=== PATIENT | male | born 1935 | race Caucasian/White ===

== ENCOUNTER → 2016-06-15 | Outpatient (CLI) | payer OTHER, MEDICARE | LOC: MMPC 11:11 | PROVIDERS: ATTEND Internal Medicine | DX: I25.10 Atherosclerotic heart disease of native coronary artery without angina pectoris (principal); I10 Essential (primary) hypertension; M54.12 Radiculopathy, cervical region; Z95.1 Presence of aortocoronary bypass graft; E78.5 Hyperlipidemia, unspecified; J43.9 Emphysema, unspecified; E03.9 Hypothyroidism, unspecified; I48.2 Chronic atrial fibrillation | CPT/HCPCS: 99214; G0463 ==

== ENCOUNTER → 2016-06-24 | Outpatient (CLI) | payer OTHER, MEDICARE ==
[2016-06-24 14:11] LABS: HEMOGLOBIN 11.8 g/dL (14.0-18.0); MEAN CORPUSCULAR HEMOGLOBIN 33.2 PG (27-31); MEAN CORPUSCULAR HGB CONC 32.8 g/dL (33-37); MEAN PLATELET VOLUME 9.5 FL (7.4-12.2); RDW COEFFICIENT OF VARIATION 13.9 % (11.5-14.5); RED BLOOD COUNT 3.55 10^6/uL (4.70-6.10); WHITE BLOOD COUNT 9.03 10^3/uL (4.8-10.8)
[2016-06-24 14:58] LABS: BUN/CREATININE RATIO 13.57 (6-20); CREATININE 1.4 mg/dL (0.70-1.50); PHOSPHORUS 3.5 mg/dl (2.4-4.3); POTASSIUM 4.3 meq/L (3.8-5.2)
== END ==
LOC: LAB 13:47
PROVIDERS: ATTEND Internal Medicine Nephrology
DX: N17.9 Acute kidney failure, unspecified (principal); E03.9 Hypothyroidism, unspecified; I10 Essential (primary) hypertension
CPT/HCPCS: 36415; 80069; 84443; 85027

== ENCOUNTER → 2016-06-29 | Outpatient (CLI) | payer OTHER, MEDICARE | LOC: MMPC 11:11 | PROVIDERS: ATTEND Internal Medicine | DX: I25.10 Atherosclerotic heart disease of native coronary artery without angina pectoris (principal); I48.2 Chronic atrial fibrillation; J43.2 Centrilobular emphysema; I10 Essential (primary) hypertension; E78.5 Hyperlipidemia, unspecified; E03.9 Hypothyroidism, unspecified; Z95.1 Presence of aortocoronary bypass graft | CPT/HCPCS: 99214; G0463 ==

== ENCOUNTER → 2016-07-03 | Outpatient (CLI) | payer OTHER, MEDICARE ==
[2016-07-03 12:53] LABS: BLOOD UREA NITROGEN 47 mg/dL (7-22); CALCIUM 10.1 mg/dL (8.7-10.7); CHLORIDE 100 meq/L (98-112); GLUCOSE 121 mg/dL (78-110); PHOSPHORUS 3.2 mg/dl (2.4-4.3); POTASSIUM 4.5 meq/L (3.8-5.2); SODIUM 140 meq/L (135-145)
== END ==
LOC: LAB 12:01
PROVIDERS: ATTEND Internal Medicine Nephrology
DX: N17.9 Acute kidney failure, unspecified (principal)
CPT/HCPCS: 36415; 80069

== ENCOUNTER → 2016-07-10 | Outpatient (CLI) | payer OTHER, MEDICARE ==
[2016-07-10 12:34] LABS: BILIRUBIN,URINE NEGATIVE (NEG); CLARITY,URINE CLEAR (CLEAR); GLUCOSE, URINE (UA) NEGATIVE (NEG); LEUKOCYTE ESTERASE ,URINE NEGATIVE (NEG); NITRATE,URINE NEGATIVE (NEG); OCCULT BLOOD,URINE MODERATE (NEG); PROTEIN,URINE NEGATIVE (NEG); UROBILINOGEN,URINE 0.2 EU/dL (0.2)
[2016-07-10 12:35] LABS: BLOOD UREA NITROGEN 53 mg/dL (7-22); BUN/CREATININE RATIO 29.44 (6-20); CHLORIDE 98 meq/L (98-112); CREATININE 1.8 mg/dL (0.70-1.50); GLUCOSE 180 mg/dL (78-110); PHOSPHORUS 3.1 mg/dl (2.4-4.3); POTASSIUM 4.1 meq/L (3.8-5.2); SODIUM 137 meq/L (135-145)
[2016-07-10 12:38] LABS: URINE SAMPLE TYPE CLEAN CATCH URINE
[2016-07-10 12:39] LABS: WBC,URINE 0-3
== END ==
LOC: LAB 11:39
PROVIDERS: ATTEND Physician Assistant Medical
DX: N18.3 Chronic kidney disease, stage 3 (moderate) (principal); R80.9 Proteinuria, unspecified
CPT/HCPCS: 36415; 80069; 81001; 87088

== ENCOUNTER → 2016-07-17 | Outpatient (CLI) | payer OTHER, MEDICARE ==
[2016-07-17 13:57] LABS: HEMATOCRIT 38.4 % (42.0-52.0); HEMOGLOBIN 13.3 g/dL (14.0-18.0); MEAN CORPUSCULAR HGB CONC 34.6 g/dL (33-37); MEAN PLATELET VOLUME 9.2 FL (7.4-12.2); RDW COEFFICIENT OF VARIATION 13.2 % (11.5-14.5); RED BLOOD COUNT 3.91 10^6/uL (4.70-6.10)
[2016-07-17 14:12] LABS: BLOOD UREA NITROGEN 38 mg/dL (7-22); BUN/CREATININE RATIO 21.11 (6-20); CALCIUM 10.4 mg/dL (8.7-10.7); CHLORIDE 96 meq/L (98-112); CREATININE 1.8 mg/dL (0.70-1.50); GLUCOSE 88 mg/dL (78-110); PHOSPHORUS 3.6 mg/dl (2.4-4.3); POTASSIUM 4.4 meq/L (3.8-5.2); SODIUM 137 meq/L (135-145)
--- NOTE | 2016-07-19 23:21 | DI ---
US RETROPERITONEAL LIMITED,07/17/2016 12:55 PM: Clinical History: Acute renal failure with the central hypertension. Previous Exam: None at this facility. Findings: Multiple grayscale and color Doppler sonographic images are obtained through the retroperitoneum demo nstrate a normal-appearing right kidney measured 12.0 cm in length without hydronephrosis nor nephrol ithiasis. The left kidney measures 9.3 cm in length also with a normal sonographic appearance. The urinary bladder is only partially distended, and therefore not well evaluated. There is a small p ost void residual measuring approximately 10.2 cc. Impression: Normal renal ultrasound.
== END ==
LOC: US 12:44
PROVIDERS: ATTEND Physician Assistant Medical
DX: N18.3 Chronic kidney disease, stage 3 (moderate) (principal); D63.1 Anemia in chronic kidney disease; N25.81 Secondary hyperparathyroidism of renal origin; N17.9 Acute kidney failure, unspecified; I10 Essential (primary) hypertension
CPT/HCPCS: 36415; 76775; 80069; 83970; 85027

== ENCOUNTER → 2016-08-29 | Outpatient (CLI) | payer OTHER, MEDICARE | LOC: MOB LAB 11:15 | PROVIDERS: ATTEND Physician Assistant | DX: R31.9 Hematuria, unspecified (principal); R82.99 Other abnormal findings in urine | CPT/HCPCS: 87077; 87088; 87186 ==

== ENCOUNTER → 2016-08-31 | Outpatient (CLI) | payer OTHER, MEDICARE | LOC: MMPC 11:11 | PROVIDERS: ATTEND Internal Medicine | DX: B95.2 Enterococcus as the cause of diseases classified elsewhere (principal); R74.8 Abnormal levels of other serum enzymes; R39.12 Poor urinary stream | CPT/HCPCS: 99214; G0463 ==

== ENCOUNTER → 2016-09-09 | Outpatient (CLI) | payer OTHER, MEDICARE | LOC: MMPC 11:11 | PROVIDERS: ATTEND Internal Medicine | DX: R10.31 Right lower quadrant pain (principal) | CPT/HCPCS: 99213; G0463 ==

== ENCOUNTER → 2016-10-01 | Outpatient (CLI) | payer OTHER, MEDICARE ==
[2016-10-01 11:00] LABS: BILIRUBIN,URINE NEGATIVE (NEG); COLOR,URINE YELLOW; GLUCOSE, URINE (UA) NEGATIVE (NEG); NITRATE,URINE NEGATIVE (NEG); OCCULT BLOOD,URINE NEGATIVE (NEG); PROTEIN,URINE NEGATIVE (NEG)
[2016-10-01 11:02] LABS: CLARITY,URINE CLEAR (CLEAR)
[2016-10-01 11:03] LABS: URINE SAMPLE TYPE CLEAN CATCH URINE
[2016-10-01 11:10] LABS: RBC,URINE 0 /hpf; SQUAMOUS EPITHELIAL CELL,UR FEW; WBC,URINE 0-1
== END ==
LOC: LAB 10:27
PROVIDERS: ATTEND Internal Medicine
DX: N39.0 Urinary tract infection, site not specified (principal); B95.2 Enterococcus as the cause of diseases classified elsewhere
CPT/HCPCS: 81001

== ENCOUNTER → 2016-10-14 | Outpatient (CLI) | payer OTHER, MEDICARE | LOC: MMPC 11:11 | PROVIDERS: ATTEND Surgery | DX: K40.90 Unilateral inguinal hernia, without obstruction or gangrene, not specified as recurrent (principal) | CPT/HCPCS: 99201; G0463 ==

== ENCOUNTER → 2016-10-28 | Outpatient (CLI) | payer OTHER, MEDICARE | LOC: MMPC 11:11 | PROVIDERS: ATTEND Internal Medicine | DX: R19.4 Change in bowel habit (principal); J43.9 Emphysema, unspecified; I10 Essential (primary) hypertension; G47.00 Insomnia, unspecified; Z95.1 Presence of aortocoronary bypass graft | CPT/HCPCS: 99214; G0463 ==

== ENCOUNTER → 2016-10-29 | Outpatient (CLI) | payer OTHER, MEDICARE | LOC: MMPC 11:11 | PROVIDERS: ATTEND Surgery | DX: K59.09 Other constipation (principal); R19.7 Diarrhea, unspecified | CPT/HCPCS: 99203 ==

== ENCOUNTER → 2016-10-30 | Outpatient (CLI) | payer OTHER, MEDICARE ==
[2016-10-30 15:17] LABS: BUN/CREATININE RATIO 27.85 (6-20); CALCIUM 9.5 mg/dL (8.7-10.7); PHOSPHORUS 3.8 mg/dl (2.4-4.3); SERUM ALBUMIN 4.4 g/dL (3.5-4.8)
== END ==
LOC: LAB 14:32
PROVIDERS: ATTEND Physician Assistant Medical
DX: N17.9 Acute kidney failure, unspecified (principal); I10 Essential (primary) hypertension
CPT/HCPCS: 36415; 80069; 82565; 84156

== ENCOUNTER → 2016-11-26 | Outpatient (CLI) | payer OTHER, MEDICARE ==
[2016-11-26 14:32] LABS: CALCIUM 9.6 mg/dL (8.7-10.7); PHOSPHORUS 3.5 mg/dl (2.4-4.3); SERUM ALBUMIN 4.4 g/dL (3.5-4.8)
== END ==
LOC: LAB 14:00
PROVIDERS: ATTEND Physician Assistant Medical
DX: N18.3 Chronic kidney disease, stage 3 (moderate) (principal)
CPT/HCPCS: 36415; 80069

== ENCOUNTER → 2016-11-30 | Outpatient (CLI) | payer OTHER, MEDICARE ==
--- NOTE | 2016-11-30 17:29 | DI ---
MRI CERVICAL SPINE SCAN, 11/30/2016 9:07 AM: Clinical History: Cervical radiculopathy. Previous Exam: 10/22/2010. Sequences: Sagittal T1and T2 weighted. Axial T2 PLUS and FE 3D DUAL. Coronal T1 scans through the upp er cervical spine. The patient is status post anterior fusions at C5-6 and C6-7. The remaining vertebral bodies are of n ormal height. The cervical disc spaces from C2-3 through C4-5 and at C7-T1 are narrowed with desiccat ion change. The C5-6 fusion may not be solid. The C6-7 fusion does appear solid. The cervical cord an d cerebellar tonsils are normal. The C2-3 disc space is normal. C3-4 and C4-5 both have mild central bulging but not herniated discs with bilateral neural foraminal stenosis. There is no canal or neural foraminal stenosis at C5-6 or C6-7. C7-T1 has a central bulging but not herniated disc without canal or neural foraminal stenosis. The T1-2, T3-4 and T4-5 disc spaces have bulging but not herniated dis cs without canal or neural foraminal stenosis. The T2-3 disc space is normal. Readin. Status post anterior fusions at C5-6 and C6-7. There is no canal or neural foraminal stenosis at either level. 2. There are bulging but not herniated discs without canal with neural foraminal stenosis at C3-4 an d C4-5. 3. There are bulging but not herniated discs without canal or neural foraminal stenosis at C7-T1, T1 -2, T3-4, and T4-5. 4. The C2-3 and T2-3 disc spaces are normal.
== END ==
LOC: MRI 09:03
PROVIDERS: ATTEND Internal Medicine
DX: M54.12 Radiculopathy, cervical region (principal); M47.812 Spondylosis without myelopathy or radiculopathy, cervical region; M47.814 Spondylosis without myelopathy or radiculopathy, thoracic region
CPT/HCPCS: 72141

== ENCOUNTER → 2016-12-09 | Outpatient (CLI) | payer OTHER, MEDICARE ==
[2016-12-09 10:23] LABS: BLOOD UREA NITROGEN 42 mg/dL (7-22); BUN/CREATININE RATIO 26.25 (6-20); CALCIUM 9.6 mg/dL (8.7-10.7); PHOSPHORUS 3.6 mg/dl (2.4-4.3); SERUM ALBUMIN 4.5 g/dL (3.5-4.8)
== END ==
LOC: LAB 09:40
PROVIDERS: ATTEND Physician Assistant Medical
DX: N18.3 Chronic kidney disease, stage 3 (moderate) (principal)
CPT/HCPCS: 36415; 80069

== ENCOUNTER 2016-12-21 09:07 | Inpatient (IN) | payer OTHER, MEDICARE ==
--- NOTE | 2016-12-21 09:51 | EKG ---
[address] [address] Measurements Intervals [place] Rate: 74 P: SC: 0 QRS: -11 QRSD: 81 T: 18 QT: 421 QTc: 448 Interpretive Statements ATRIAL FIBRILLATION ABNORMAL RHYTHM ECG No previous ECG available for comparison Electronically Signed On 12-21-16 13:52:19 MDT by Ambrocio Vela [email or web address]
[2016-12-21] MEDS ORDERED: Sodium Chloride 0.9% 1,000 ML PRIMARY IV ONE (10:17)
[2016-12-21] MEDS ORDERED: IPRATROPIUM/ALBUTEROL SULFATE 3 ML NEB NEB ONE (10:17)
[2016-12-21] MEDS ORDERED: NORMAL SALINE 10 ML SYRINGE FLUSH IVP PRN (10:17)
[2016-12-21 11:47] LABS: CALCIUM 10.2 mg/dL (8.7-10.7); SERUM ALBUMIN 4.5 g/dL (3.5-4.8)
[2016-12-21 11:49] LABS: MAGNESIUM 1.7 mg/dL (1.6-2.4)
[2016-12-21 11:55] LABS: C-REACTIVE PROTEIN < 0.5 mg/dL (0.0-0.9)
[2016-12-21 12:12] LABS: HEMATOCRIT 42 % (42.0-52.0); HEMOGLOBIN 14.9 g/dL (14.0-18.0); MEAN CORPUSCULAR HEMOGLOBIN 35.2 PG (27-31); MEAN CORPUSCULAR HGB CONC 35.5 g/dL (33-37); MEAN CORPUSCULAR VOLUME 99.3 FL (80-90); RED BLOOD COUNT 4.23 10^6/uL (4.70-6.10)
[2016-12-21 12:13] LABS: BAND NEUTROPHILS % 0 % (0-10); BASOPHILS % (MANUAL) 0 % (0-1); EOSINOPHILS % (MANUAL) 1 % (0-8); LYMPHOCYTES % (MANUAL) 23 % (10-50); MEAN PLATELET VOLUME 10.2 FL (7.4-12.2); MONOCYTES % (MANUAL) 4 % (0-12); NEUTROPHILS % (MANUAL) 72 % (50-80); PLATELET MORPHOLOGY COMMENT NORMAL MORPHOLOGY (NORM); RBC MORPHOLOGY COMMENT NORMAL MORPHOLOGY (NORM); WBC MORPHOLOGY COMMENT NORMAL MORPHOLOGY (NORM)
--- NOTE | 2016-12-21 13:03 | PDOC ---
History and Physical - History of Present Illness History of Present Illness: Very nice 81-year-old gentleman past medical history significant for chronic A. fib hypertension and COPD comes in because he has been short short of breath for the last day or 2. He is usually on 2 L of oxygen at night he has also stopped smoking 5 years ago. He also has a history of coronary bypass in 2009 and some stents placed in May 2016 and patient is currently on Plavix not on anticoagulation. Apparently he is on sotalol and this will be stopped here at the end of this month. 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 Past Medical History Medical History: COPD, coronary artery disease Surgical History: Catheter with stents in May 2016,, CABG 2009 Family History: Reviewed an Not Pertinent Tobacco Use: Former Smoker Substance Use Type: None Medication / Allergies Home Medications: Home Medications Medication Instructions Recorded Confirmed Type Lo-Dose Aspirin Ec 81 mg ORAL QD 60 Days 10/17/10 12/21/16 Clinic Vit D3 1,000 PO 90 Days 10/17/10 12/07/12 Clinic Vitamin B Complex [B Complex] 1 each PO QD #270 10/17/10 12/21/16 Clinic Albuterol Sulfate 0.63 mg IH QID #120 each 03/31/13 12/21/16 Clinic Guaifenesin [Mucinex] 1 tab PO BID #60 tab 10/18/13 12/21/16 Clinic Fluocinonide 30 gm TOPICAL BID #1 tube 01/02/15 12/21/16 Clinic Albuterol/Ipratropium Inhaler 1 puff INH Q4-6H PRN #1 inhaler 02/01/15 12/21/16 Clinic [Combivent Respimat Inhaler] Arformoterol Tartrate [Brovana] 15 mcg INH Q12H #60 vial 06/20/15 12/21/16 Clinic Budesonide Neb Soln [Pulmicort Neb 0.5 mg NEB BID #60 vial 06/20/15 12/21/16 Clinic Soln] Albuterol/Ipratrop Neb Soln 1 vial NEB QD #30 vial 07/26/15 12/21/16 Clinic [Duoneb Neb Soln] Albuterol Sulfate [Proair Hfa] 2 puff INH Q4-6H PRN #3 inhaler 09/30/15 Clinic Tizanidine HCl 0.5 - 1 tab PO Q6-8H PRN #90 tab 01/20/16 12/21/16 [facility] Oxycodone HCl/Acetaminophen 1 tab PO QID PRN #120 tab 10/28/16 12/21/16 Clinic [Oxycodone-Acetaminophen 5-325] Sotalol HCl [Sotalol] 1 tab ORAL QD #90 tab 11/05/16 12/21/16 [facility] Clopidogrel Bisulfate [Clopidogrel] 1 tab PO DAILY #90 tab 11/19/16 12/21/16 Clinic Furosemide [Lasix] 1 tab PO QD #90 tab 11/19/16 12/21/16 Clinic Gabapentin 1 tab PO TID #270 tab 11/19/16 12/21/16 [facility] Allergies/Adverse Reactions: Allergies Allergy/AdvReac Type Severity Reaction Status Date / Time bupropion HCl Allergy Intermediate HIVES Verified 12/21/16 09:21 [From Wellbutrin] Penicillins Allergy Intermediate HIVES Verified 12/21/16 09:21 Review of Systems - Review of Systems All Systems: Reviewed & No Additional Complaints Except as Stated - Respiratory Respiratory: REPORTS: Dyspnea with Exertion - Cardiovascular Cardiovascular: DENIES: Chest Pain - Genitourinary Genitourinary: DENIES: Negative System Review, Pain, Burning, Hematuria, Incontinence, Urgency, Hesitant Stream, Decreased Stream, Nocutria, Discharge, Sexual Dyfunction, Other, See HPI - Neurological Neurologic: DENIES: Negative System Review, Headache, Numbness/Paresthesia, Tremors, Weakness, Seizures, Head Trauma, LOC, Dizziness, Confusion, Memory Loss , Difficulty Walking, Incoordination, Other, See HPI Exam - Vitals Vital Signs: Vital Signs Temperature 97.6 F Temperature Source Temporal Artery Scan Pulse Rate [Pulse Oximeter 80 Radial] Pulse Rate 74 Respiratory Rate 24 Blood Pressure [Left Arm] 104/69 Pulse Ox 89 Oxygen Delivery Method Room Air Height 5 ft 8 in Weight 57.153 kg - General General Appearance: POSITIVE: No Acute Distress, Cooperative - Head Head Exam: POSITIVE: Normal Inspection, Normocephalic, Atraumatic - Respiratory Respiratory Exam: POSITIVE: Clear to Auscultation - Bilaterally, Decreased Breath Sounds - Cardiovascular Cardiovascular Exam: POSITIVE: Irregular Rhythm, No JVD - GI/Abdominal GI/Abdominal Exam: POSITIVE: Non Tender, Non Distended, Soft - Extremities Extremities Exam: POSITIVE: No Clubbing Present, No Edema Present - Neurological Neurological Exam: POSITIVE: Alert, Oriented x 3, CN II-XII Intact Results - Labs CBC and BMP: 12/21/16 11:30 12/21/16 11:30 Labs - Last 24 Hours: Laboratory Results 12/21/16 Range/Units 11:30 WBC 8.09 (4.8-10.8) 10^3/uL RBC 4.23 L (4.70-6.10) 10^6/uL Hgb 14.9 (14.0-18.0) g/dL Hct 42 (42.0-52.0) % MCV 99.3 H (80-90) FL MCH 35.2 H (27-31) PG MCHC 35.5 (33-37) g/dL RDW Std Deviation 50.3 H (39-50) fL RDW Coeff of Juan M 14.1 (11.5-14.5) % Plt Count 254 (140-350) 10*3/uL MPV 10.2 (7.4-12.2) FL Neutrophils % (Manual) 72 (50-80) % Band Neutrophils % 0 (0-10) % Lymphocytes % (Manual) 23 (10-50) % Monocytes % (Manual) 4 (0-12) % Eosinophils % (Manual) 1 (0-8) % Basophils % (Manual) 0 (0-1) % Metamyelocytes % Not Reportable Myelocytes % Not Reportable Promyelocytes % Not Reportable Blast Cells Not Reportable WBC Morphology Comment Normal morphology (NORM) Plt Morphology Comment Normal morphology (NORM) RBC Morph Comment Normal morphology (NORM) D-Dimer 2.04 H (0.00-0.59) mg/L Sodium 140 (135-145) meq/L Potassium 4.0 (3.8-5.2) meq/L Chloride 98 (98-112) meq/L Carbon Dioxide 28 (23-33) meq/L Anion Gap 14 (5-20) BUN 33 H (7-22) mg/dL Creatinine 1.5 (0.70-1.50) mg/dL Estimated GFR (>60 ml/min/1.73m(2)) BUN/Creatinine Ratio 22.00 H (6-20) Glucose 88 (78-110) mg/dL Calculated Osmolality 295.0 H (267-292) mOsm/kg Calcium 10.2 (8.7-10.7) mg/dL Magnesium 1.7 (1.6-2.4) mg/dL Total Bilirubin 1.6 H (0.3-1.2) mg/dL AST 42 (21-57) IU/L ALT 23 (21-72) IU/L Alkaline Phosphatase 62 (38-126) IU/L C-Reactive Protein < 0.5 (0.0-0.9) mg/dL Total Protein 8.0 (6.1-8.0) g/dL Albumin 4.5 (3.5-4.8) g/dL Globulin 3.4 (2.50-4.10) g/dL Albumin/Globulin Ratio 1.30 (1.3-2.0) mg/g Assessment and Plan - Patient Problems (1) COPD exacerbation Current Visit: Yes Status: Acute Comment: Check CT scan rule out PE elevated d-dimer start antibiotics steroids ABG continue home meds (2) D-dimer, elevated Current Visit: Yes Status: Acute (3) Atrial fibrillation Current Visit: Yes Status: Acute - Assessment / Plan Additional Assessment/Plan Details: Most likely COPD exacerbation but considering his heart history we will rule him out as well get a plain CT scan of his chest may sure does not have pneumonia or PE considering his elevated d-dimer patient is not on anticoagulation I will consider starting Eliquis
--- NOTE | 2016-12-21 13:33 | PDOC ---
Dyspnea HPI - General Chief Complaint: Respiratory Complaint Stated Complaint: SHORTNESS OF BREATH INCREASED YESTERDAY Date Seen by Provider: 12/21/16 Time Seen by Provider: 09:45 Source: POSITIVE: Patient, Spouse Exam Limitations: POSITIVE: No limitations Treatment Prior to Arrival: REPORTS: None Nurse's Notes Reviewed & Considered: Yes - History of Present Illness Initial Comments: The patient is a 81-year-old male. Patient has a history of COPD, hypertension and atrial fibrillation. His chief complaint is increased dyspnea for approximately the past day. Patient states he uses oxygen at night, 2 L/m, on a when necessary basis. He quit smoking 4 years ago. Patient had a coronary artery bypass in 2009 and had coronary artery stents placed in May 2016. Patient is on clopidogrel; he is not on any anticoagulants. He denies any chest pain. Somewhat increased cough. No fevers. Cough is minimally productive. He is brought to the emergency room by his . Body Location Affected: REPORTS: Chest (Dyspnea, increased) Timing: REPORTS: Gradual, Getting Worse Duration: >24 hours (Approximately 24 hours) Severity: Moderate Quality: REPORTS: Other (Patient denies any pain anywhere) Initiating Event: DENIES: Upper Respiratory Illness, Out of Medications, Sports , Exercise, Aspiration, Choking, Allergy, Exposure - Smoke, Exposure - Mold, Exposure - Other Allergen Context: REPORTS: Activity Exacerbated By: REPORTS: Exertion, Coughing Associated Symptoms: REPORTS: Productive Cough (Productive of mucoid sputum). DENIES: Fever, Chills, Sweating, Chest Pain, Chest Discomfort, Left Chest, Right Chest, Central Chest, Chest Heaviness, Chest Tightness, Painful Breathing , Radiation to Back, Radiation to Jaw, Radiation to Arm, Bloody Cough, Heart Racing, Leg Pain, Calf Pain, Ankle Swelling, Leg Swelling, Dizziness, Light- Headedness, Anxiety, Tingling - Hands, Tingling - Face, Muscle Spasms - Hands, Muscle Spasms - Feet Similar Symptoms Previously: Yes Recently seen/treated/hospitalized: No Any Prior Injuries Related to Current Complaint?: No - Patient Home Medications Home Medications: Home Medications Lo-Dose Aspirin Ec 81 mg ORAL QD 60 Days 10/17/10 Vit D3 1,000 PO 90 Days 10/17/10 Vitamin B Complex [B Complex] 1 each PO QD #270 10/17/10 Albuterol Sulfate 0.63 mg IH QID #120 each 03/31/13 Guaifenesin [Mucinex] 1 tab PO BID #60 tab 10/18/13 Fluocinonide 30 gm TOPICAL BID #1 tube 01/02/15 Albuterol/Ipratropium Inhaler [Combivent Respimat Inhaler] 1 puff INH Q4-6H PRN #1 inhaler 02/01/15 Arformoterol Tartrate [Brovana] 15 mcg INH Q12H #60 vial 06/20/15 Budesonide Neb Soln [Pulmicort Neb Soln] 0.5 mg NEB BID #60 vial 06/20/15 Albuterol/Ipratrop Neb Soln [Duoneb Neb Soln] 1 vial NEB QD #30 vial 07/26/15 Albuterol Sulfate [Proair Hfa] 2 puff INH Q4-6H PRN #3 inhaler 09/30/15 Tizanidine HCl 0.5 - 1 tab PO Q6-8H PRN #90 tab 01/20/16 Oxycodone HCl/Acetaminophen [Oxycodone-Acetaminophen 5-325] 1 tab PO QID PRN # 120 tab 10/28/16 Sotalol HCl [Sotalol] 1 tab ORAL QD #90 tab 11/05/16 Clopidogrel Bisulfate [Clopidogrel] 1 tab PO DAILY #90 tab 11/19/16 Furosemide [Lasix] 1 tab PO QD #90 tab 11/19/16 Gabapentin 1 tab PO TID #270 tab 11/19/16 - Patient Allergies Allergies/Adverse Reactions: Allergies Allergy/AdvReac Type Severity Reaction Status Date / Time bupropion HCl Allergy Intermediate HIVES Verified 12/21/16 09:21 [From Wellbutrin] Penicillins Allergy Intermediate HIVES Verified 12/21/16 09:21 Past Medical History - heen HEENT History: Hard of Hearing, Dentures/Partials, Other (please comment) Additional HEENT History: WEARS GLASSES Cardiovascular History: Hypertension, CAD, Arrhythmia Additional Cardiovasular History: ABDOMINAL AORTIC ANEURYSM PRESENT/ INTERMITTENT A-FIB/ QUADRUPLE BYPASS 2009, CARDIAC STENT x2 IN MAY 2016 Respiratory History: COPD, Shortness of Breath, Home Oxygen Use, Home CPAP Use Additional Respiratory History: IS SUPPOSED TO USE CPAP AT NIGHT BUT CHOOSES NOT TO Gastrointestinal History: GERD, Other (please comment) Additional Gastrointestinal History: DYSPHAGIA, POSSIBLE RIGHT INGUINAL HERNIA Genitourinary History: Other (please comment) Additional Genitourinary History: DIFFICULTY EMPTYING BLADDER/ KIDNEY LEVELS ELEVATED, 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) Endocrine History: Hypothyroidism Musculoskeletal History: Arthritis Prosthesis or Implant: Yes (CARDIAC STENTS x2, POSSIBLE NECK HARDWARE) Additional Musculoskeletal History: 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 Neurological History: Denies History Blood Disorders: Denies History Psychiatric History: Depression History of Sexually Transmitted Diseases: No Male Reproductive History: Denies History Cancer History: Denies History In Past Year Been Physically Harmed or Verbally Threatened: No (PER PATIENT AND ) History of MDRO: No History of Other Communicable Diseases: No Tobacco Use: Former Smoker Alcohol Use: None How much alcohol do you normally drink a day?: NONE IN 10 YEARS Substance Use Type: None Previous Surgical History: Yes Type / Date of Surgery: CABG X4 VESSELS/COLONOSCOPY/ NECK FUSION/ TONSILLECTOMY/ CARDIAC STENT x2/ABDOMINAL AORTIC ANEURYSM REPAIR Anesthesia Reactions: Yes Malignant Hyperthermia: No Significant Family History: Cancer Past Medical History Reviewed: Reviewed - No Changes ROS - Limitations ROS Limitations: No Limitations Constitution: REPORTS: Denies Symptoms Cardiovascular: REPORTS: Denies Cardiac Symptoms Respiratory: REPORTS: Cough Productive, Shortness Of Breath Neurological: REPORTS: Denies Neuro Symptoms Gastrointestinal: REPORTS: Denies GI Symptoms Endocrine: REPORTS: Denies Symptoms Musculoskeletal: REPORTS: Denies MS Symptoms Genitourinary: REPORTS: Denies Symptoms Eyes: REPORTS: Denies Symptoms ENT: REPORTS: Denies Symptoms Skin: REPORTS: Denies Skin Symptoms Lympathic: REPORTS: Denies Lympathic Symptoms Immunologic: POSITIVE: Denies Symptoms Psychiatric: POSITIVE: Denies Psych Symptoms Dyspnea Physical Exam - General Appearance General Appearance: REPORTS: Alert, Cooperative, No Acute Distress, No Evidence of Trauma - HEENT HEENT: POSITIVE: Head Inspection Nml, Eyes Inspection Nml, Ears Inspection Nml, Nose Inspection Nml, Oral/Dental Inspect. Nml, Pharynx Inspect. Nml, PERRL, EOMI - Neck Neck: REPORTS: Normal Inspection, No Carotid Bruit - Respiratory Respiratory: REPORTS: No Pleuritic Chest Pain, Speaks Full Sentences, No Pain on Inspiration, Respiratory Distress (Mild), Rhonchi. DENIES: Breath Sounds Normal (Scattered rhonchi), Fatigue, Wheezes, Rales, Prolonged Expirations, Accessory Muscle Use, Retractions, Splinting, Dull on Percussion, Decreased Air Movement, Chest Wall Tenderness, Speaks Broken Sentences, Stridor, Respiratory Failure - Cardiovascular Cardiovascular: REPORTS: Heart Sounds Normal, Equal Pulses, Strong Pulses, No Murmur, No Gallop, No Friction Rub, No JVD, Irregularly Irreg Rhythm (Atrial fibrillation with heart rate of around 80) Peripheral Pulses: Radial (R): 2+, Radial (L): 2+ - Abdomen Abdomen: Soft: (All Quadrants), Normal Bowel Sounds: (All Quadrants), Denies Tenderness: (All Quadrants), No Splenomegaly: (All Quadrants), No Hepatomegaly: (All Quadrants), No Guarding: (All Quadrants), No Rebound: (All Quadrants), No Palpable Pulse: (All Quadrants), No Palpabale Mass: (All Quadrants), No Distention: (All Quadrants), No Rigidity: (All Quadrants) - Skin Skin: REPORTS: Intact, Normal For Race, Warm, Dry, No Rash - Extremities Extremity: Non-Tender: (All Extremities), Normal ROM: (All Extremities), Normal Inspection: (All Extremities) - Neurological / Psychological Neurological: POSITIVE: Oriented X3, fourth mate Normal As Tested, Motor Normal, Sensation Normal, 5, 6 Dyspnea Progress - Results Reviewed by me Xrays/CTs/US Reviewed by me: Yes Discussed with Radiologist: Yes Radiology Findings: Scarring left lung; radiologist reports present chest x-ray is unchanged from 2012 Lab Results Reviewed: Yes (d-dimer 2.04) Lab Results:: Laboratory Results 12/21/16 Range/Units 11:30 WBC 8.09 (4.8-10.8) 10^3/uL RBC 4.23 L (4.70-6.10) 10^6/uL Hgb 14.9 (14.0-18.0) g/dL Hct 42 (42.0-52.0) % MCV 99.3 H (80-90) FL MCH 35.2 H (27-31) PG MCHC 35.5 (33-37) g/dL RDW Std Deviation 50.3 H (39-50) fL RDW Coeff of Juan M 14.1 (11.5-14.5) % Plt Count 254 (140-350) 10*3/uL MPV 10.2 (7.4-12.2) FL Neutrophils % (Manual) 72 (50-80) % Band Neutrophils % 0 (0-10) % Lymphocytes % (Manual) 23 (10-50) % Monocytes % (Manual) 4 (0-12) % Eosinophils % (Manual) 1 (0-8) % Basophils % (Manual) 0 (0-1) % Metamyelocytes % Not Reportable Myelocytes % Not Reportable Promyelocytes % Not Reportable Blast Cells Not Reportable WBC Morphology Comment Normal morphology (NORM) Plt Morphology Comment Normal morphology (NORM) RBC Morph Comment Normal morphology (NORM) D-Dimer 2.04 H (0.00-0.59) mg/L Sodium 140 (135-145) meq/L Potassium 4.0 (3.8-5.2) meq/L Chloride 98 (98-112) meq/L Carbon Dioxide 28 (23-33) meq/L Anion Gap 14 (5-20) BUN 33 H (7-22) mg/dL Creatinine 1.5 (0.70-1.50) mg/dL Estimated GFR (>60 ml/min/1.73m(2)) BUN/Creatinine Ratio 22.00 H (6-20) Glucose 88 (78-110) mg/dL Calculated Osmolality 295.0 H (267-292) mOsm/kg Calcium 10.2 (8.7-10.7) mg/dL Magnesium 1.7 (1.6-2.4) mg/dL Total Bilirubin 1.6 H (0.3-1.2) mg/dL AST 42 (21-57) IU/L ALT 23 (21-72) IU/L Alkaline Phosphatase 62 (38-126) IU/L C-Reactive Protein < 0.5 (0.0-0.9) mg/dL Total Protein 8.0 (6.1-8.0) g/dL Albumin 4.5 (3.5-4.8) g/dL Globulin 3.4 (2.50-4.10) g/dL Albumin/Globulin Ratio 1.30 (1.3-2.0) mg/g EKG Interpreted/Reviewed By Me:: Yes (atrial fibrillation with controlled ventricular response) EKG Interpretation:: POSITIVE: Normal Rate, Normal Intervals, Normal [place], Normal QRS, Normal ST/T. NEGATIVE: Normal Sinus Rhythm (Atrial fibrillation) - Patient's Progress Pain Medication Addressed: POSITIVE: Not Applicable School/Work Release Addressed: POSITIVE: Not Applicable Re-Examine Time: 12:30 Re-Examine Comment: Patient states he feels some better after DuoNeb treatment. Elevated d-dimer discussed with patient and his . Patient states he was advised to avoid IV contrast because when he had a coronary angiogram who reportedly had some renal failure. BUN is 33 and creatinine is 1.5. Case discussed with hospitalist; patient may need VQ scan. Status: POSITIVE: Improved, Re-Examined Air Movement: POSITIVE: Fair - Consult Consult (If Yes, Name of Consulting MD & Time Called): Yes (Dr. Rea, hospitalist, [id number]) Consulting MD will see pt:: POSITIVE[place] [facility] [place] Counseled: POSITIVE: Patient, Family, RE: Lab Results, RE: Radiology Results, RE : DX, RE: Need for F/U Patient Care Time - Estimated PCT Patient Care Time (In Minutes): 60 Vital Signs - Recent Vital Signs Vital Signs: Vital Signs (Last 8 hours) Temp Pulse Pulse Resp BP Pulse Ox 12/21/16 09:51 74 12/21/16 09:49 97.6 F 80 24 104/69 89 - VS Reviewed Vital Signs Reviewed: Yes Discharge Clinical Impression: COPD exacerbation, Positive D-dimer Condition: Fair Date Decision to Admit to Inpatient: 12/21/16 Time Decision to Admit to Inpatient: 12:20
[2016-12-21] MEDS ORDERED: LIDOCAINE W/ SODIUM BICARB 0.5 ML SYR SUBD PRN (14:16)
[2016-12-21] MEDS ORDERED: ALPRAZolam Tab 0.25 MG TABLET PO PRN (15:01)
[2016-12-21] MEDS: HEPARIN 5000 UNIT/1 ML SUBCUT SCH ×2 (15:43→20:04)
[2016-12-21] MEDS: methylPREDNISolone 125 MG/2 ML VIAL IVP SCH ×2 (15:45→20:05)
[2016-12-21] MEDS: IPRATROPIUM/ALBUTEROL SULFATE 3 ML NEB NEB SCH (19:25)
[2016-12-21] MEDS: BUDESONIDE 0.5 MG/2 ML NEB SCH (19:25)
[2016-12-21] MEDS ORDERED: Zolpidem Tab 5 MG TAB PO ONE (20:02)
[2016-12-21] MEDS: GABAPENTIN 300 MG CAPSULE PO SCH (20:04)
[2016-12-21] MEDS: NORMAL SALINE 10 ML SYRINGE FLUSH IVP PRN (20:05)
[2016-12-21] MEDS: GUAIFENESIN 600 MG TABLET PO SCH (20:15)
[2016-12-22] MEDS: methylPREDNISolone 125 MG/2 ML VIAL IVP SCH ×4 (03:38→21:22)
[2016-12-22] MEDS: NORMAL SALINE 10 ML SYRINGE FLUSH IVP PRN (03:39)
[2016-12-22] MEDS: HEPARIN 5000 UNIT/1 ML SUBCUT SCH ×3 (05:05→21:22)
[2016-12-22 06:06] LABS: CALCIUM 9.3 mg/dL (8.7-10.7)
--- NOTE | 2016-12-22 06:31 | DI ---
XR CXR 2VW PA/LAT,12/21/2016 10:18 AM: Clinical History: Cough and shortness of breath. Previous Exam: May 11, 2012 Findings: PA and lateral views of the chest are obtained, and demonstrate stable subsegmental atelectasis in th e left lung base. Postsurgical changes are seen consistent with prior sternotomy. There is screw and plate fixation of lower cervical spine. There is no pleural effusion. The cardiomediastinum is unremarkable. Impression: No significant change from the prior exam
--- NOTE | 2016-12-22 06:32 | DI ---
CT CHEST W/O CONTRAST,12/21/2016 2:39 PM: Clinical History: Scarring within the left lung base. Previous Exam: May 05, 2011 Findings: Multiple helically acquired CT images are obtained through the chest without contrast, and demonstrat e stable scarring within the left lung base. Coronary artery calcifications are seen the patient is status post CABG. The upper abdomen is unremarkable except for peripheral vascular calcifications and moderate stool th roughout the colon. Diffuse degenerative changes of the spine are seen which appear stable. Impression: Stable scarring within the left lung base.
[2016-12-22] MEDS: IPRATROPIUM/ALBUTEROL SULFATE 3 ML NEB NEB SCH ×2 (06:54→19:03)
[2016-12-22] MEDS: BUDESONIDE 0.5 MG/2 ML NEB SCH ×2 (06:54→19:04)
[2016-12-22] MEDS: FUROSEMIDE 40 MG TABLET PO SCH (06:59)
[2016-12-22 07:06] LABS: HEMATOCRIT 38.4 % (42.0-52.0); HEMOGLOBIN 13.1 g/dL (14.0-18.0); RED BLOOD COUNT 3.83 10^6/uL (4.70-6.10)
[2016-12-22 07:07] LABS: BASOPHILS # (AUTO) 0.01 10*3/UL; BASOPHILS % (AUTO) 0.2 % (0-1); EOSINOPHILS # (AUTO) 0 10*3/UL; EOSINOPHILS % (AUTO) 0 % (0-8); LYMPHOCYTES # (AUTO) 0.65 10*3/uL; MEAN CORPUSCULAR HEMOGLOBIN 34.2 PG (27-31); MEAN CORPUSCULAR HGB CONC 34.1 g/dL (33-37); MEAN CORPUSCULAR VOLUME 100.3 FL (80-90); MEAN PLATELET VOLUME 10.4 FL (7.4-12.2); MONOCYTES # (AUTO) 0.13 10*3/UL (0.3-0.8); NEUTROPHILS # (AUTO) 5.64 10*3/UL; NEUTROPHILS % (AUTO) 87.5 % (50-80); PLATELET MORPHOLOGY COMMENT NORMAL MORPHOLOGY (NORM); WBC MORPHOLOGY COMMENT NORMAL MORPHOLOGY (NORM)
[2016-12-22 07:08] LABS: RBC MORPHOLOGY COMMENT NORMAL MORPHOLOGY (NORM)
[2016-12-22] MEDS: CLOPIDOGREL 75 MG TABLET PO SCH (09:01)
[2016-12-22] MEDS: GABAPENTIN 300 MG CAPSULE PO SCH ×3 (09:01→21:21)
[2016-12-22] MEDS: ASPIRIN EC 81 MG TABLET PO SCH (09:02)
[2016-12-22] MEDS: GUAIFENESIN 600 MG TABLET PO SCH ×2 (09:02→21:22)
--- NOTE | 2016-12-22 11:55 | PDOC(PROG) ---
Interval History: Patient is all much better today he is breathing easier denies chest pain nausea or vomiting Objective : Data - Labs CBC and BMP: 12/22/16 03:45 12/22/16 03:45 Labs - Last 24 Hours: Laboratory Results 12/21/16 12/22/16 12/22/16 Range/Units 18:01 03:45 08:49 WBC 6.44 (4.8-10.8) 10^3/uL RBC 3.83 L (4.70-6.10) 10^6/uL Hgb 13.1 L (14.0-18.0) g/dL Hct 38.4 L (42.0-52.0) % MCV 100.3 H (80-90) FL MCH 34.2 H (27-31) PG MCHC 34.1 (33-37) g/dL RDW Std Deviation 50.0 (39-50) fL RDW Coeff of Juan M 13.8 (11.5-14.5) % Plt Count 227 (140-350) 10*3/uL MPV 10.4 (7.4-12.2) FL Immature Gran % (Auto) 0.2 (0-5) % Neut % (Auto) 87.5 H (50-80) % Lymph % (Auto) 10.1 (10-50) % [place] % (Auto) 2.0 L (5-15) % Eos % (Auto) 0 (0-8) % Baso % (Auto) 0.2 (0-1) % Immature Gran # (Auto) 0.01 10*3/UL Neut # (Auto) 5.64 10*3/UL Lymph # (Auto) 0.65 10*3/uL [place] # (Auto) 0.13 L (0.3-0.8) 10*3/UL Eos # (Auto) 0 10*3/UL Baso # (Auto) 0.01 10*3/UL WBC Morphology Comment Normal morphology (NORM) Plt Morphology Comment Normal morphology (NORM) RBC Morph Comment Normal morphology (NORM) Sodium 137 (135-145) meq/L Potassium 3.6 L (3.8-5.2) meq/L Chloride 100 (98-112) meq/L Carbon Dioxide 25 (23-33) meq/L Anion Gap 12 (5-20) BUN 39 H (7-22) mg/dL Creatinine 1.5 (0.70-1.50) mg/dL Estimated GFR (>60 ml/min/1.73m(2)) BUN/Creatinine Ratio 26.00 H (6-20) Glucose 132 H (78-110) mg/dL Calculated Osmolality 294.0 H (267-292) mOsm/kg Calcium 9.3 (8.7-10.7) mg/dL Troponin I < 0.012 (< 0.040) ng/mL NT-Pro-B Natriuret Pep 2950 H (0-450) PG/ML 12/22/16 Range/Units 09:25 WBC (4.8-10.8) 10^3/uL RBC (4.70-6.10) 10^6/uL Hgb (14.0-18.0) g/dL Hct (42.0-52.0) % MCV (80-90) FL MCH (27-31) PG MCHC (33-37) g/dL RDW Std Deviation (39-50) fL RDW Coeff of Juan M (11.5-14.5) % Plt Count (140-350) 10*3/uL MPV (7.4-12.2) FL Immature Gran % (Auto) (0-5) % Neut % (Auto) (50-80) % Lymph % (Auto) (10-50) % [place] % (Auto) (5-15) % Eos % (Auto) (0-8) % Baso % (Auto) (0-1) % Immature Gran # (Auto) 10*3/UL Neut # (Auto) 10*3/UL Lymph # (Auto) 10*3/uL [place] # (Auto) (0.3-0.8) 10*3/UL Eos # (Auto) 10*3/UL Baso # (Auto) 10*3/UL WBC Morphology Comment (NORM) Plt Morphology Comment (NORM) RBC Morph Comment (NORM) Sodium (135-145) meq/L Potassium (3.8-5.2) meq/L Chloride (98-112) meq/L Carbon Dioxide (23-33) meq/L Anion Gap (5-20) BUN (7-22) mg/dL Creatinine (0.70-1.50) mg/dL Estimated GFR (>60 ml/min/1.73m(2)) BUN/Creatinine Ratio (6-20) Glucose (78-110) mg/dL Calculated Osmolality (267-292) mOsm/kg Calcium (8.7-10.7) mg/dL Troponin I < 0.012 (< 0.040) ng/mL NT-Pro-B Natriuret Pep (0-450) PG/ML Objective : Exam - General General Appearance: Cooperative - Head Head Exam: Normal Inspection - Eye Eye Exam: Normal Appearance, PERRL - ENT ENT Exam: Normal Exam - Respiratory Respiratory Exam: Clear to Auscultation - Bilaterally, Decreased Breath Sounds - Cardiovascular Cardiovascular Exam: RRR, No Murmur, No Clicks - GI/Abdominal GI/Abdominal Exam: Non Tender, Non Distended, Soft - Extremities Extremities Exam: No Clubbing Present, No Edema Present, No Cyanosis Present - Neurological Neurological Exam: Alert, Oriented x 3 Assessment and Plan - Patient Problems (1) COPD exacerbation Current Visit: Yes Status: Acute Comment: Improving continue steroids and antibiotics we'll switch over to by mouth (2) Atrial fibrillation Current Visit: Yes Status: Acute Comment: Stable continue current meds
[2016-12-23] MEDS: methylPREDNISolone 125 MG/2 ML VIAL IVP SCH ×2 (04:59→08:31)
[2016-12-23] MEDS: HEPARIN 5000 UNIT/1 ML SUBCUT SCH (04:59)
[2016-12-23 05:23] LABS: BUN/CREATININE RATIO 36.92 (6-20); CALCIUM 9.2 mg/dL (8.7-10.7); SERUM ALBUMIN 3.2 g/dL (3.5-4.8)
[2016-12-23] MEDS: IPRATROPIUM/ALBUTEROL SULFATE 3 ML NEB NEB SCH (07:39)
[2016-12-23] MEDS: BUDESONIDE 0.5 MG/2 ML NEB SCH (07:40)
[2016-12-23] MEDS: FUROSEMIDE 40 MG TABLET PO SCH (07:49)
[2016-12-23] MEDS: CLOPIDOGREL 75 MG TABLET PO SCH (08:31)
[2016-12-23] MEDS: ASPIRIN EC 81 MG TABLET PO SCH (08:31)
[2016-12-23] MEDS: GABAPENTIN 300 MG CAPSULE PO SCH (08:31)
[2016-12-23] MEDS: GUAIFENESIN 600 MG TABLET PO SCH (08:32)
[2016-12-23] MEDS ORDERED: POTASSIUM CHLORIDE 20 MEQ TAB PO SCH (10:00)
[2016-12-23 11:18] VITALS: RESP 20; TEMP 97.2
--- NOTE | 2016-12-23 12:17 | DCSUMMARY ---
Hospitalization Summary Hospital Course: Final Discharge Diagnosis: Current Visit Problems Problem Status Priority Diagnosed Code Atrial fibrillation Acute I48.91 COPD exacerbation Acute J44.1 D-dimer, elevated Acute R79.89 Diagnostic Data, Laboratory Data, and Procedures of Signifigance: Laboratory Results 12/21/16 12/21/16 12/22/16 Range/Units 11:30 18:01 03:45 WBC 8.09 6.44 (4.8-10.8) 10^3/uL RBC 4.23 L 3.83 L (4.70-6.10) 10^6/uL Hgb 14.9 13.1 L (14.0-18.0) g/dL Hct 42 38.4 L (42.0-52.0) % MCV 99.3 H 100.3 H (80-90) FL MCH 35.2 H 34.2 H (27-31) PG MCHC 35.5 34.1 (33-37) g/dL RDW Std Deviation 50.3 H 50.0 (39-50) fL RDW Coeff of Juan M 14.1 13.8 (11.5-14.5) % Plt Count 254 227 (140-350) 10*3/uL MPV 10.2 10.4 (7.4-12.2) FL Immature Gran % (Auto) 0.2 (0-5) % Neut % (Auto) 87.5 H (50-80) % Lymph % (Auto) 10.1 (10-50) % [place] % (Auto) 2.0 L (5-15) % Eos % (Auto) 0 (0-8) % Baso % (Auto) 0.2 (0-1) % Immature Gran # (Auto) 0.01 10*3/UL Neut # (Auto) 5.64 10*3/UL Lymph # (Auto) 0.65 10*3/uL [place] # (Auto) 0.13 L (0.3-0.8) 10*3/UL Eos # (Auto) 0 10*3/UL Baso # (Auto) 0.01 10*3/UL Neutrophils % (Manual) 72 (50-80) % Band Neutrophils % 0 (0-10) % Lymphocytes % (Manual) 23 (10-50) % Monocytes % (Manual) 4 (0-12) % Eosinophils % (Manual) 1 (0-8) % Basophils % (Manual) 0 (0-1) % Metamyelocytes % Not Reportable Myelocytes % Not Reportable Promyelocytes % Not Reportable Blast Cells Not Reportable WBC Morphology Comment Normal morphology Normal morphology (NORM) Plt Morphology Comment Normal morphology Normal morphology (NORM) RBC Morph Comment Normal morphology Normal morphology (NORM) D-Dimer 2.04 H (0.00-0.59) mg/L Sodium 140 137 (135-145) meq/L Potassium 4.0 3.6 L (3.8-5.2) meq/L Chloride 98 100 (98-112) meq/L Carbon Dioxide 28 25 (23-33) meq/L Anion Gap 14 12 (5-20) BUN 33 H 39 H (7-22) mg/dL Creatinine 1.5 1.5 (0.70-1.50) mg/dL Estimated GFR (>60 ml/min/1.73m(2)) BUN/Creatinine Ratio 22.00 H 26.00 H (6-20) Glucose 88 132 H (78-110) mg/dL Calculated Osmolality 295.0 H 294.0 H (267-292) mOsm/kg Calcium 10.2 9.3 (8.7-10.7) mg/dL Magnesium 1.7 (1.6-2.4) mg/dL Total Bilirubin 1.6 H (0.3-1.2) mg/dL AST 42 (21-57) IU/L ALT 23 (21-72) IU/L Alkaline Phosphatase 62 (38-126) IU/L Troponin I < 0.012 (< 0.040) ng/mL C-Reactive Protein < 0.5 (0.0-0.9) mg/dL NT-Pro-B Natriuret Pep (0-450) PG/ML Total Protein 8.0 (6.1-8.0) g/dL Albumin 4.5 (3.5-4.8) g/dL Globulin 3.4 (2.50-4.10) g/dL Albumin/Globulin Ratio 1.30 (1.3-2.0) mg/g 12/22/16 12/22/16 12/23/16 Range/Units 08:49 09:25 04:53 WBC (4.8-10.8) 10^3/uL RBC (4.70-6.10) 10^6/uL Hgb (14.0-18.0) g/dL Hct (42.0-52.0) % MCV (80-90) FL MCH (27-31) PG MCHC (33-37) g/dL RDW Std Deviation (39-50) fL RDW Coeff of Juan M (11.5-14.5) % Plt Count (140-350) 10*3/uL MPV (7.4-12.2) FL Immature Gran % (Auto) (0-5) % Neut % (Auto) (50-80) % Lymph % (Auto) (10-50) % [place] % (Auto) (5-15) % Eos % (Auto) (0-8) % Baso % (Auto) (0-1) % Immature Gran # (Auto) 10*3/UL Neut # (Auto) 10*3/UL Lymph # (Auto) 10*3/uL [place] # (Auto) (0.3-0.8) 10*3/UL Eos # (Auto) 10*3/UL Baso # (Auto) 10*3/UL Neutrophils % (Manual) (50-80) % Band Neutrophils % (0-10) % Lymphocytes % (Manual) (10-50) % Monocytes % (Manual) (0-12) % Eosinophils % (Manual) (0-8) % Basophils % (Manual) (0-1) % Metamyelocytes % Myelocytes % Promyelocytes % Blast Cells WBC Morphology Comment (NORM) Plt Morphology Comment (NORM) RBC Morph Comment (NORM) D-Dimer (0.00-0.59) mg/L Sodium 136 (135-145) meq/L Potassium 3.3 L (3.8-5.2) meq/L Chloride 105 (98-112) meq/L Carbon Dioxide 23 (23-33) meq/L Anion Gap 8 (5-20) BUN 48 H (7-22) mg/dL Creatinine 1.3 (0.70-1.50) mg/dL Estimated GFR (>60 ml/min/1.73m(2)) BUN/Creatinine Ratio 36.92 H (6-20) Glucose 161 H (78-110) mg/dL Calculated Osmolality 297.0 H (267-292) mOsm/kg Calcium 9.2 (8.7-10.7) mg/dL Magnesium (1.6-2.4) mg/dL Total Bilirubin 0.4 (0.3-1.2) mg/dL AST 34 (21-57) IU/L ALT 22 (21-72) IU/L Alkaline Phosphatase 44 (38-126) IU/L Troponin I < 0.012 (< 0.040) ng/mL C-Reactive Protein (0.0-0.9) mg/dL NT-Pro-B Natriuret Pep 2950 H (0-450) PG/ML Total Protein 5.8 L (6.1-8.0) g/dL Albumin 3.2 L (3.5-4.8) g/dL Globulin 2.6 (2.50-4.10) g/dL Albumin/Globulin Ratio 1.20 L (1.3-2.0) mg/g History and Physical pertinent to Admission: Course of Hospitalization: Is a very nice 81-year-old gentleman with past medical history significant for coronary artery disease, history of A. 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 Comes in with some shortness of breath and productive sputum diagnosed with COPD exacerbation CT scan with no contrast reveals no pneumonia patient was treated with steroids and antibiotics improved dramatically also was given inhalers and steroids. Back to his baseline his cough has disappeared and his breathing back to his normal he will be discharged home in stable and improved condition he will be given some prednisone for 4 more days and also I advised him to follow-up with Dr. Odell and his primary care physician his and him both understand and they will make an appointment On the date of discharge, the patient was examined: Gen.: No acute distress, alert, nontoxic Heart: Regular rate and rhythm, no murmurs, clicks, gallops, or rubs Lungs: Clear to auscultation bilaterally, breathing is nonlabored Abdomen/GI: Normal tones on auscultation, soft, nontender, nondistended Musculoskeletal/extremities: No clubbing, cyanosis, or edema Vitals reviewed and are listed below Vital Signs (24 hrs) Temp Pulse Pulse Resp BP Pulse Ox 12/23/16 11:14 97.2 F 102 H 20 122/75 96 12/23/16 09:00 97 F 95 18 113/65 98 12/23/16 05:00 98.7 F 87 22 124/60 96 12/22/16 23:00 85 12/22/16 20:34 98.1 F 98 20 128/66 96 12/22/16 19:00 91 98 12/22/16 16:09 97.8 F 93 20 112/72 96 12/22/16 15:00 102 H 12/22/16 13:00 97.6 F 102 H 14 148/76 98 Assessment and Plan: 1. As per discharge assessments above 2. Disposition: Home 3. Condition on discharge, stable and improved. 4. Diet: regular diet 5. Activities: resume normal activities 6. Follow-Up: 1. PCP by [facility] physician in 3-5 days appointment is being made by the front line leader 2. 7. Medications at the Time of Discharge: Home Medications Medication Instructions Recorded Confirmed Type Lo-Dose Aspirin Ec 81 mg ORAL QD 60 Days 10/17/10 12/21/16 Clinic Vit D3 1,000 PO 90 Days 10/17/10 12/07/12 Clinic Vitamin B Complex [B Complex] 1 each PO QD #270 10/17/10 12/21/16 [facility] Albuterol Sulfate 0.63 mg IH QID #120 each 03/31/13 12/21/16 Clinic Guaifenesin [Mucinex] 1 tab PO BID #60 tab 10/18/13 12/21/16 Clinic Fluocinonide 30 gm TOPICAL BID #1 tube 01/02/15 12/21/16 Clinic Albuterol/Ipratropium Inhaler 1 puff INH Q4-6H PRN #1 inhaler 02/01/15 12/21/16 Clinic [Combivent Respimat Inhaler] Arformoterol Tartrate [BROVANA] 15 mcg INH Q12H #60 vial 06/20/15 12/21/16 Clinic Budesonide Neb Soln [PULMICORT NEB 0.5 mg NEB BID #60 vial 06/20/15 12/21/16 Clinic SOLN] Albuterol/Ipratrop Neb Soln 1 vial NEB QD #30 vial 07/26/15 12/21/16 Clinic [Duoneb Neb Soln] Albuterol Sulfate [Proair Hfa] 2 puff INH Q4-6H PRN #3 inhaler 05/09/16 07/31/ 17 Clinic Tizanidine HCl 0.5 - 1 tab PO Q6-8H PRN #90 tab 01/20/16 12/21/16 Clinic Oxycodone HCl/Acetaminophen 1 tab PO QID PRN #120 tab 10/28/16 12/21/16 Clinic [Oxycodone-Acetaminophen 5-325] Sotalol HCl [Sotalol] 1 tab ORAL QD #90 tab 11/05/16 12/21/16 Clinic Clopidogrel Bisulfate [Clopidogrel] 1 tab PO DAILY #90 tab 11/19/16 12/21/16 Clinic Furosemide [Lasix] 1 tab PO QD #90 tab 11/19/16 12/21/16 Clinic Gabapentin 1 tab PO TID #270 tab 11/19/16 12/21/16 Clinic Potassium Chloride [Klor-Con] 40 meq PO BID #2 tab 12/23/16 Rx predniSONE Tab [Deltasone Tab] 40 mg PO DAILY #7 tab 12/23/16 Rx 8. Time, care, counseling and coordination of care for this discharge is greater than 30 minutes. Exam - Vitals Vital Signs: Vital Signs Temperature 97.2 F Temperature Source Temporal Artery Scan Pulse Rate [Pulse Oximeter 102 Radial] Pulse Rate 85 Respiratory Rate 20 Blood Pressure [Left Arm] 122/75 Blood Pressure 96/66 Pulse Ox 96 Oxygen Flow Rate 2 Oxygen Delivery Method Room Air Height 5 ft 8 in Weight 59.874 kg Patient Problems - Patient Problem List (1) COPD exacerbation Current Visit: Yes Status: Acute (2) Atrial fibrillation Current Visit: Yes Status: Acute
[2016-12-24] MEDS ORDERED: predniSONE Tab 20 MG TAB PO SCH (09:00)
--- NOTE | 2016-12-24 15:36 | OTI REPORT ---
Thank you for the referral of Morgan Edwards. He was seen on 12/22/16 for an occupational therapy swallow evaluation. SUBJECTIVE: The patient is a 81-year-old male who is being seen today secondary to having reports of swallowing difficulties. He says he has had swallow difficulties for several years now. He states that food gets stuck in his throat and he has a hard time initiating the swallow. He reports food items that get stuck are things like steak and hamburger, but he states that oatmeal has also gotten stuck. He reports that he has had some tests done in the past and occupational therapy did look at his reports in the past, looking at the esophagus. The patient states these tests were pretty much negative for any diagnostic dysfunction. PAST MEDICAL HISTORY: Past medical history can be found in the patient's medical record. OBJECTIVE FINDINGS: Pre-Swallow Assessment: Alertness/Responsiveness: The patient was alert and responsive. He was sitting edge of bed but at times had to lean backward secondary to fatigue. Reliable responses: The patient had reliable yes and no responses. Facial symmetry: The patient did demonstrate facial symmetry. Volitional dry swallow: The patient did have a volitional dry swallow. Neglect: The patient did not demonstrate any neglect. Cough: The patient's cough was somewhat raspy, but overall did well. Nutrition and intake method over the last 24 hours: Regular diet with thin liquids. Oxygen Saturation: The patient is running at 90% or above on room air. At night he does wear oxygen secondary to his COPD. Secretions: The patient was able to handle his own secretions. Dentition: The patient's dentition was fair. Tongue range of motion/Opening and closing of mouth: Within functional limits. Tongue strength: The patient demonstrates good tongue strength. Lip Control/Lingual Function: The patient has good lip control and lingual function. Sensation: The patient reports good sensation in all the buccal, labial, and lingual areas. Gag reflex: The patient has an intact gag reflex. General observations: The patient does have a very kyphotic cervical spine that is in flexion. Feeding Assessment: During the feeding assessment the patient demonstrated an intact automatic swallow as well as intact laryngeal elevation. Today the patient was eating lunch when the therapist arrived. He reported that some of the sandwich had gotten caught and he did have a hard time clearing. The patient's states that the patient does not drink during meals and that he usually eats a whole meal before taking a drink of liquid. The patient did agree with this. After observation of solid foods, the patient did clear with the therapist and also cleared thin liquids with good laryngeal elevation; however, the patient did need to do some throat clearing and reported at times it felt like the food was stuck and pinpointed right near the hyoid cartilage or slightly inferior to that. The patient reports that sometimes he feels like pills get stuck but he is able to clear them with some liquid. The patient is able to self feed. ASSESSMENT: The patient is more than likely demonstrating pharyngeal weakness. He is verbalizing food getting stuck mainly in the pharyngeal region with regular type food items. Also, the patient eats food without liquid in between bites and he is probably more at risk for pooling in the piriformis sinuses. The therapist did look at the patient's radiology report from years past and it was not conclusive, but it did look like he has a little bit of penetration of liquid going to the epiglottis but did not demonstrate aspiration. The patient also had a little bit of pooling in the piriformis sinuses, which could indicate some weakness, but again this was not conclusive. Functionally, the patient is demonstrating some concerns with his swallowing and food getting "stuck" in the pharyngeal region. The patient would benefit from skilled therapy to address swallow strengthening exercises. At this point the patient is refusing to change his diet. The patient and his were educated on mechanical soft vs. regular food items. It was highly recommended the patient stick to mechanical soft type foods vs. regular type foods if he is having more concerns with his food getting stuck in the throat. RECOMMENDATIONS: 1. The patient can remain on thin liquids. 2. Medication can be taken with a chin tuck. 3. Patient should sit upright for all meals. 4. It would be best if the patient alternated bites of food with liquid. We talked about having two to three bites of food and then having a drink so that food does not stay stuck in the throat. SWALLOW GOALS: Patient will demonstrate four swallow exercises independently. Patient will demonstrate eating a meal and following compensatory strategies. Patient will be independent with his swallow strengthening exercises and maneuvers to improve his overall swallowing in order to eat regular food items without difficulty. INITIAL TREATMENT: Treatment today consisted of the swallow evaluation followed by the patient being educated in swallow strengthening maneuvers including effortful swallow, Laura maneuver, Rhina maneuver, and epiglottic control. The patient demonstrated weakness with all of these. He definitely had weakness with the Laura maneuver and had difficulty initiating the Rhina. With the effortful swallow, the patient needed increased time to process before swallowing. MTDD
--- NOTE | 2016-12-24 15:43 | OT AM DAY ---
Diagnosis : Swallowing Difficulties AM - Occupational Therapy S: The patient reports he has been trying some of the swallow strengthening maneuvers and they have been a little difficult. O: The therapist was present when the patient got his breakfast which consisted of pancakes, eggs, syrup, and sausage as well as coffee and a Boost. Precautions were reviewed; however, the patient started eating and was not taking drinks of liquid in between bites. We had the patient practice taking two bites and then taking a drink of liquid to decrease the chance of food getting stuck in the pharyngeal region. The patient did 10 effortful swallows. We practiced a couple Laura maneuvers, Rhina maneuvers, and epiglottic control. A: The patient and his were both educated on and it was highly recommended that the patient complete swallow strengthening exercises 2-3x daily as indicated on the worksheets that were given to them. The patient's stated that she will remind the patient to take a drink after every few swallows of food when eating meals. We also discussed that the patient needs to eat smaller meals 4-6 times a day vs. one big meal. P: Continue seeing patient BID during the week and one time per day over the weekend until discharge. EDD
== END 2016-12-23 14:40 | disposition home or self-care (01) | DRG 192 ==
LOC: ER 09:07 → MED/SURG 12:48
PROVIDERS: ADMIT Internal Medicine; ATTEND Internal Medicine
DX: J44.1 Chronic obstructive pulmonary disease with (acute) exacerbation (principal); I48.91 Unspecified atrial fibrillation; R79.89 Other specified abnormal findings of blood chemistry; E86.0 Dehydration; N18.9 Chronic kidney disease, unspecified
CPT/HCPCS: 71020; 80053; 83735; 85007; 85379; 86140; 93005; 93010; 94640; 99285 ×2; J7620; 36415; 71250; 80048; 83880; 84484; 85025; 94761; 97530; 97750; J1644; J7030; J7050; J7626

== ENCOUNTER 2019-02-15 17:43 | Inpatient (IN) ==
[2019-02-15] MEDS ORDERED: Sodium Chloride 0.9% 1,000 ML PRIMARY IV ONE ×3 (17:53→22:48)
[2019-02-15] MEDS ORDERED: Magnesium Sulfate 2gm (Premix) 2 GM/50 ML BAG IV ONE ×3 (18:24→22:48)
[2019-02-15 20:32] LABS: BILIRUBIN,URINE NEGATIVE (NEG); CLARITY,URINE CLEAR (CLEAR); COLOR,URINE YELLOW (Y); GLUCOSE, URINE (UA) NEGATIVE (NEG); OCCULT BLOOD,URINE NEGATIVE (NEG); PH,URINE 5.5 (5.0-8.5); PROTEIN,URINE NEGATIVE (NEG); UROBILINOGEN,URINE 0.2 EU/dL (0.2)
[2019-02-15 20:36] LABS: URINE SAMPLE TYPE UR; WBC,URINE 25-50
[2019-02-15 20:37] LABS: URINE CASTS MODERATE
[2019-02-15] MEDS ORDERED: LIDOCAINE W/ SODIUM BICARB 0.5 ML SYR SUBD PRN (21:34)
[2019-02-15] MEDS ORDERED: Sodium Chloride 0.9% 1,000 ML, Magnesium Sulfate 2gm (Premix) 50 ML with Multivitamin I... IV ONE ×5 (22:15)
[2019-02-15] MEDS ORDERED: LORazepam 2 MG/1 ML VIAL IVP PRN (22:42)
[2019-02-15] MEDS ORDERED: Sodium Chloride 0.9% 1,000 ML, Magnesium Sulfate 2gm (Premix) 50 ML with Multivitamin I... IV SCH ×5 (22:45)
[2019-02-15] MEDS ORDERED: FOLIC ACID 5 MG/1 ML - 10 ML ONE (22:48)
[2019-02-15] MEDS ORDERED: MVI, ADULT NO.1 WITH VIT K 10 ML VIAL IV ONE (22:48)
[2019-02-15] MEDS: NITROFURANTOIN/NITROFURAN MAC 100 MG CAPSULE PO SCH (23:43)
[2019-02-16 05:13] VITALS: RESP 20
[2019-02-16 05:32] LABS: Hematocrit [HCT] 34.5 % (42.0-52.0); Hemoglobin [HGB] 12.1 g/dL (14.0-18.0); MEAN CORPUSCULAR HGB CONC 35.1 g/dL (33-37); MEAN CORPUSCULAR VOLUME 110.6 FL (80-90); MEAN PLATELET VOLUME 10.1 FL (7.4-12.2); NEUTROPHILS % (AUTO) 71.5 % (50-80); RED BLOOD COUNT 3.12 10^6/uL (4.70-6.10)
[2019-02-16 05:33] LABS: BASOPHILS # (AUTO) 0.04 10*3/UL; BASOPHILS % (AUTO) 0.5 % (0-1); EOSINOPHILS # (AUTO) 0.07 10*3/UL; EOSINOPHILS % (AUTO) 1 % (0-8); LYMPHOCYTES # (AUTO) 1.17 10*3/uL; MONOCYTES # (AUTO) 0.78 10*3/UL (0.3-0.8); MONOCYTES % (AUTO) 10.7 % (5-15); NEUTROPHILS # (AUTO) 5.22 10*3/UL; PLATELET MORPHOLOGY COMMENT NORMAL MORPHOLOGY (NORM); RBC MORPHOLOGY COMMENT NORMAL MORPHOLOGY (NORM); WBC MORPHOLOGY COMMENT NORMAL MORPHOLOGY (NORM)
[2019-02-16 05:35] LABS: BUN/CREATININE RATIO 29.09 (6-20)
[2019-02-16] MEDS: Sodium Chloride 0.9% 1,000 ML PRIMARY IV SCH ×2 (06:52→08:44)
[2019-02-16] MEDS: NITROFURANTOIN/NITROFURAN MAC 100 MG CAPSULE PO SCH ×2 (09:16→22:36)
[2019-02-16] MEDS: POTASSIUM CHLORIDE 20 MEQ TAB PO SCH ×2 (09:16→22:35)
[2019-02-16] MEDS: FUROSEMIDE 40 MG TABLET PO SCH (09:16)
[2019-02-16] MEDS: GABAPENTIN 300 MG CAPSULE PO SCH ×3 (09:16→22:36)
[2019-02-16] MEDS: METOPROLOL SUCCINATE 25 MG SR 24H TABLET PO SCH (09:17)
[2019-02-16] MEDS ORDERED: IPRATROPIUM/ALBUTEROL SULFATE 3 ML NEB NEB SCH (16:00)
[2019-02-16] MEDS ORDERED: IPRATROPIUM/ALBUTEROL SULFATE 3 ML NEB NEB PRN (16:03)
[2019-02-16] MEDS ORDERED: Sodium Chloride 0.9% 1,000 ML with Multivitamin Inj 10 ML, Thiamine Inj 100 MG, Folic A... IV SCH ×5 (19:00)
[2019-02-17] MEDS ORDERED: NITROGLYCERIN 0.4 MG SL TAB (BOTTLE OF 3) SL PRN (01:10)
[2019-02-17] MEDS: NITROFURANTOIN/NITROFURAN MAC 100 MG CAPSULE PO SCH (08:52)
[2019-02-17] MEDS: METOPROLOL SUCCINATE 25 MG SR 24H TABLET PO SCH (08:52)
[2019-02-17] MEDS: POTASSIUM CHLORIDE 20 MEQ TAB PO SCH (08:52)
[2019-02-17] MEDS: FUROSEMIDE 40 MG TABLET PO SCH (08:53)
[2019-02-17] MEDS: GABAPENTIN 300 MG CAPSULE PO SCH ×2 (08:53→14:58)
[2019-02-17 12:27] VITALS: TEMP 97.9; O2SAT 96
[2019-02-17 14:21] LABS: BUN/CREATININE RATIO 25.45 (6-20); SERUM ALBUMIN 4.5 g/dL (3.5-4.8)
[2019-02-17 17:29] VITALS: BP 120/66
== END 2019-02-17 18:41 | disposition home or self-care (01) | DRG 641 ==
LOC: ER 17:43 → MED/SURG 19:05
PROVIDERS: ADMIT Internal Medicine; ATTEND Internal Medicine

== ENCOUNTER 2019-03-14 09:29 | Inpatient (IN) ==
[2019-03-14] MEDS ORDERED: Sodium Chloride 0.9% 1,000 ML PRIMARY IV ONE (09:54)
[2019-03-14] MEDS ORDERED: CLOPIDOGREL BISULFATE 300 MG TABLET PO ONE (09:54)
[2019-03-14 10:20] LABS: Hematocrit [HCT] 35.4 % (42.0-52.0); Hemoglobin [HGB] 11.9 g/dL (14.0-18.0); MEAN CORPUSCULAR VOLUME 112.7 FL (80-90); RED BLOOD COUNT 3.14 10^6/uL (4.70-6.10)
[2019-03-14 10:21] LABS: MEAN CORPUSCULAR HGB CONC 33.6 g/dL (33-37); MEAN PLATELET VOLUME 9.9 FL (7.4-12.2)
[2019-03-14 10:27] LABS: BUN/CREATININE RATIO 21.53 (6-20); SERUM ALBUMIN 4.4 g/dL (3.5-4.8)
[2019-03-14 10:32] LABS: BASOPHILS # (AUTO) 0.03 10*3/UL; BASOPHILS % (AUTO) 0.6 % (0-1); EOSINOPHILS # (AUTO) 0.05 10*3/UL; LYMPHOCYTES # (AUTO) 1.09 10*3/uL; MONOCYTES % (AUTO) 12.5 % (5-15); NEUTROPHILS # (AUTO) 3.03 10*3/UL
[2019-03-14 10:33] LABS: PLATELET MORPHOLOGY COMMENT NORMAL MORPHOLOGY (NORM); RBC MORPHOLOGY COMMENT SEE COMMENTS (NORM); WBC MORPHOLOGY COMMENT NORMAL MORPHOLOGY (NORM)
[2019-03-14] MEDS ORDERED: cefTRIAXone Inj 2 GM in Sodium Chloride 0.9% 100 ML IV ONE (13:05)
[2019-03-14] MEDS ORDERED: LORAZEPAM 0.5 MG PO PRN (15:55)
[2019-03-14] MEDS ORDERED: LIDOCAINE W/ SODIUM BICARB 0.5 ML SYR SUBD PRN (15:55)
[2019-03-14] MEDS ORDERED: Gabapentin 600 MG TABLET PO SCH ×2 (15:55→21:00)
[2019-03-14] MEDS: cefTRIAXone Inj 2 GM in Sodium Chloride 0.9% 100 ML IV SCH (16:43)
[2019-03-14] MEDS ORDERED: Magnesium Sulfate 4gm (Premix) 4 GM/100 ML BAG IV ONE (16:53)
[2019-03-14] MEDS ORDERED: Sodium Chloride 0.9% 1,000 ML, Magnesium Sulfate 2gm (Premix) 50 ML with Multivitamin I... IV SCH ×5 (17:15)
[2019-03-14] MEDS ORDERED: LORazepam 1 mg tab (ETOH withdrawal) PO PRN (17:30)
[2019-03-14] MEDS ORDERED: LORazepam Inj(ETOH withdrawal) 2 MG/ML VIAL IVP PRN (17:30)
[2019-03-14] MEDS ORDERED: ALBUTEROL SULFATE 2.5 MG/3 ML NEB PRN (17:32)
[2019-03-14] MEDS: HEPARIN 5000 UNIT/1 ML SUBCUT SCH ×2 (17:41→23:33)
[2019-03-14] MEDS ORDERED: Sodium Chloride 0.9% 1,000 ML with Multivitamin Inj 10 ML, Thiamine Inj 100 MG, Folic A... IV SCH ×5 (19:30)
[2019-03-14] MEDS: metroNIDAZOLE 500mg (Premix) 500 MG/100 ML BAG IV SCH (21:32)
[2019-03-14] MEDS: GABAPENTIN 300 MG CAPSULE PO SCH (21:32)
[2019-03-14] MEDS ORDERED: CALCIUM CARBONATE 500 MG (TUMS) CHEWABLE TABLET PO PRN (21:40)
[2019-03-15] MEDS: IPRATROPIUM/ALBUTEROL SULFATE 3 ML NEB NEB SCH ×4 (01:08→18:45)
[2019-03-15] MEDS: metroNIDAZOLE 500mg (Premix) 500 MG/100 ML BAG IV SCH ×3 (05:04→20:58)
[2019-03-15 05:06] LABS: VENOUS PH 7.49 (7.32-7.42)
[2019-03-15 06:02] LABS: BUN/CREATININE RATIO 21.66 (6-20)
[2019-03-15 06:52] LABS: BASOPHILS % (AUTO) 0.3 % (0-1); EOSINOPHILS % (AUTO) 0.6 % (0-8); Hematocrit [HCT] 49.9 % (42.0-52.0); Hemoglobin [HGB] 16.9 g/dL (14.0-18.0); MEAN CORPUSCULAR HGB CONC 33.9 g/dL (33-37); MEAN CORPUSCULAR VOLUME 110.9 FL (80-90); MEAN PLATELET VOLUME 10.4 FL (7.4-12.2); MONOCYTES % (AUTO) 12.6 % (5-15); NEUTROPHILS % (AUTO) 68.6 % (50-80)
[2019-03-15 06:53] LABS: BASOPHILS # (AUTO) 0.01 10*3/UL; EOSINOPHILS # (AUTO) 0.02 10*3/UL; LYMPHOCYTES # (AUTO) 0.54 10*3/uL; NEUTROPHILS # (AUTO) 2.18 10*3/UL; PLATELET MORPHOLOGY COMMENT NORMAL MORPHOLOGY (NORM); WBC MORPHOLOGY COMMENT NORMAL MORPHOLOGY (NORM)
[2019-03-15 06:54] LABS: RBC MORPHOLOGY COMMENT SEE COMMENTS (NORM)
[2019-03-15] MEDS: ASCORBIC ACID Chewable 500 MG TABLET PO SCH (08:25)
[2019-03-15] MEDS: GABAPENTIN 300 MG CAPSULE PO SCH ×3 (08:26→20:59)
[2019-03-15] MEDS: HEPARIN 5000 UNIT/1 ML SUBCUT SCH ×2 (08:27→15:27)
[2019-03-15] MEDS ORDERED: VERAPAMIL HCL 120 MG PO SCH (09:00)
[2019-03-15] MEDS ORDERED: METOPROLOL SUCCINATE 25 MG SR 24H TABLET PO SCH (09:00)
[2019-03-15] MEDS ORDERED: Sodium Chloride 0.9% 1,000 ML with Multivitamin Inj 10 ML, Thiamine Inj 100 MG, Folic A... IV SCH ×5 (11:30)
[2019-03-15] MEDS: METOPROLOL SUCCINATE 25 MG SR 24H TABLET PO SCH (13:52)
[2019-03-15] MEDS: cefTRIAXone Inj 2 GM in Sodium Chloride 0.9% 100 ML IV SCH (15:27)
[2019-03-16] MEDS: IPRATROPIUM/ALBUTEROL SULFATE 3 ML NEB NEB SCH ×4 (00:56→20:47)
[2019-03-16] MEDS: HEPARIN 5000 UNIT/1 ML SUBCUT SCH ×4 (01:33→23:52)
[2019-03-16] MEDS: metroNIDAZOLE 500mg (Premix) 500 MG/100 ML BAG IV SCH ×2 (04:35→13:59)
[2019-03-16 05:28] LABS: BASOPHILS # (AUTO) 0.03 10*3/UL; BASOPHILS % (AUTO) 0.6 % (0-1); EOSINOPHILS # (AUTO) 0.07 10*3/UL; EOSINOPHILS % (AUTO) 1.5 % (0-8); Hematocrit [HCT] 31.1 % (42.0-52.0); Hemoglobin [HGB] 10.2 g/dL (14.0-18.0); LYMPHOCYTES # (AUTO) 1.04 10*3/uL; MEAN CORPUSCULAR HGB CONC 32.8 g/dL (33-37); MEAN PLATELET VOLUME 10.1 FL (7.4-12.2); MONOCYTES # (AUTO) 0.59 10*3/UL (0.3-0.8); MONOCYTES % (AUTO) 12.6 % (5-15); NEUTROPHILS # (AUTO) 2.94 10*3/UL; NEUTROPHILS % (AUTO) 62.9 % (50-80); RED BLOOD COUNT 2.68 10^6/uL (4.70-6.10)
[2019-03-16 05:42] LABS: BLOOD UREA NITROGEN 19 mg/dL (7-22); BUN/CREATININE RATIO 17.27 (6-20); SERUM ALBUMIN 3.5 g/dL (3.5-4.8)
[2019-03-16 05:56] LABS: PLATELET MORPHOLOGY COMMENT NORMAL MORPHOLOGY (NORM); RBC MORPHOLOGY COMMENT SEE COMMENTS (NORM); WBC MORPHOLOGY COMMENT NORMAL MORPHOLOGY (NORM)
[2019-03-16] MEDS ORDERED: Lidocaine 1% 10 MG/ML - 20 ML VIAL SUBCUT PRN (07:04)
[2019-03-16] MEDS ORDERED: LIDOCAINE 2% 20 MG/ML - 20 ML VIAL SUBCUT PRN (07:04)
[2019-03-16] MEDS: ASCORBIC ACID Chewable 500 MG TABLET PO SCH (09:21)
[2019-03-16] MEDS: METOPROLOL SUCCINATE 25 MG SR 24H TABLET PO SCH (09:21)
[2019-03-16] MEDS: GABAPENTIN 300 MG CAPSULE PO SCH ×3 (09:21→20:23)
[2019-03-16] MEDS: cefTRIAXone Inj 2 GM in Sodium Chloride 0.9% 100 ML IV SCH (16:22)
[2019-03-16] MEDS: Cefepime Inj 2 GM in Sodium Chloride 0.9% 100 ML IV SCH (20:22)
[2019-03-17] MEDS: IPRATROPIUM/ALBUTEROL SULFATE 3 ML NEB NEB SCH ×5 (01:19→19:13)
[2019-03-17] MEDS: Cefepime Inj 2 GM in Sodium Chloride 0.9% 100 ML IV SCH ×3 (03:56→20:57)
[2019-03-17 05:34] LABS: BASOPHILS # (AUTO) 0.02 10*3/UL; BASOPHILS % (AUTO) 0.4 % (0-1); EOSINOPHILS # (AUTO) 0.08 10*3/UL; EOSINOPHILS % (AUTO) 1.8 % (0-8); Hematocrit [HCT] 26.8 % (42.0-52.0); Hemoglobin [HGB] 8.9 g/dL (14.0-18.0); LYMPHOCYTES # (AUTO) 1.05 10*3/uL; MEAN CORPUSCULAR HGB CONC 33.2 g/dL (33-37); MEAN PLATELET VOLUME 10.7 FL (7.4-12.2); MONOCYTES # (AUTO) 0.47 10*3/UL (0.3-0.8); MONOCYTES % (AUTO) 10.4 % (5-15); NEUTROPHILS # (AUTO) 2.91 10*3/UL; NEUTROPHILS % (AUTO) 64.1 % (50-80); RED BLOOD COUNT 2.29 10^6/uL (4.70-6.10)
[2019-03-17 05:44] LABS: BLOOD UREA NITROGEN 13 mg/dL (7-22); BUN/CREATININE RATIO 14.44 (6-20)
[2019-03-17 06:39] LABS: PLATELET MORPHOLOGY COMMENT NORMAL MORPHOLOGY (NORM); WBC MORPHOLOGY COMMENT NORMAL MORPHOLOGY (NORM)
[2019-03-17 06:40] LABS: RBC MORPHOLOGY COMMENT SEE COMMENTS (NORM)
[2019-03-17] MEDS: FUROSEMIDE 10 MG/1 ML - 2 ML VIAL IVP SCH ×2 (07:52→14:56)
[2019-03-17] MEDS: HEPARIN 5000 UNIT/1 ML SUBCUT SCH ×2 (07:52→14:56)
[2019-03-17] MEDS: ASCORBIC ACID Chewable 500 MG TABLET PO SCH (10:06)
[2019-03-17] MEDS: GABAPENTIN 300 MG CAPSULE PO SCH ×3 (10:06→20:56)
[2019-03-17] MEDS ORDERED: Magnesium Sulfate 2gm (Premix) 2 GM/50 ML BAG IV ONE (10:59)
[2019-03-17] MEDS: POTASSIUM CHLORIDE 20 MEQ TAB PO SCH ×2 (11:40→20:56)
[2019-03-17] MEDS: METOPROLOL SUCCINATE 25 MG SR 24H TABLET PO SCH (13:28)
[2019-03-18] MEDS: HEPARIN 5000 UNIT/1 ML SUBCUT SCH ×4 (00:20→23:06)
[2019-03-18] MEDS: IPRATROPIUM/ALBUTEROL SULFATE 3 ML NEB NEB SCH ×4 (01:09→19:24)
[2019-03-18] MEDS: Cefepime Inj 2 GM in Sodium Chloride 0.9% 100 ML IV SCH ×3 (04:11→21:06)
[2019-03-18] MEDS: FUROSEMIDE 10 MG/1 ML - 2 ML VIAL IVP SCH ×2 (08:31→15:01)
[2019-03-18 09:26] LABS: BASOPHILS # (AUTO) 0.04 10*3/UL; BASOPHILS % (AUTO) 0.8 % (0-1); EOSINOPHILS # (AUTO) 0.14 10*3/UL; EOSINOPHILS % (AUTO) 2.9 % (0-8); Hematocrit [HCT] 31.4 % (42.0-52.0); Hemoglobin [HGB] 10.4 g/dL (14.0-18.0); LYMPHOCYTES # (AUTO) 1.16 10*3/uL; MEAN CORPUSCULAR HGB CONC 33.1 g/dL (33-37); MEAN CORPUSCULAR VOLUME 115.4 FL (80-90); MEAN PLATELET VOLUME 10.7 FL (7.4-12.2); MONOCYTES # (AUTO) 0.52 10*3/UL (0.3-0.8); MONOCYTES % (AUTO) 10.9 % (5-15); NEUTROPHILS # (AUTO) 2.92 10*3/UL; RED BLOOD COUNT 2.72 10^6/uL (4.70-6.10)
[2019-03-18 09:34] LABS: BUN/CREATININE RATIO 11.66 (6-20); SERUM ALBUMIN 3.9 g/dL (3.5-4.8)
[2019-03-18 09:48] LABS: PLATELET MORPHOLOGY COMMENT NORMAL MORPHOLOGY (NORM); RBC MORPHOLOGY COMMENT NORMAL MORPHOLOGY (NORM); WBC MORPHOLOGY COMMENT NORMAL MORPHOLOGY (NORM)
[2019-03-18] MEDS ORDERED: Magnesium Sulfate 2gm (Premix) 2 GM/50 ML BAG IV ONE (09:48)
[2019-03-18] MEDS: GABAPENTIN 300 MG CAPSULE PO SCH ×3 (11:28→21:07)
[2019-03-18] MEDS: METOPROLOL SUCCINATE 25 MG SR 24H TABLET PO SCH (11:28)
[2019-03-18] MEDS: ASCORBIC ACID Chewable 500 MG TABLET PO SCH (11:28)
[2019-03-18] MEDS: POTASSIUM CHLORIDE 20 MEQ TAB PO SCH ×2 (11:28→21:07)
[2019-03-18] MEDS ORDERED: FUROSEMIDE 10 MG/1 ML - 4 ML ONE (14:55)
[2019-03-18] MEDS ORDERED: CEFEPIME 2 GM VIAL ONE (21:04)
[2019-03-18] MEDS ORDERED: Sodium Chloride 0.9% 100 ML IV ONE (21:05)
[2019-03-18] MEDS: HEPARIN 500 UNIT/5 ML SYRINGE FOR CENTRAL LINE IVP PRN (21:11)
[2019-03-18] MEDS: LORazepam 1 MG TABLET PO PRN (23:16)
[2019-03-19] MEDS: Cefepime Inj 2 GM in Sodium Chloride 0.9% 100 ML IV SCH ×3 (04:01→20:55)
[2019-03-19] MEDS: IPRATROPIUM/ALBUTEROL SULFATE 3 ML NEB NEB SCH ×3 (04:24→18:43)
[2019-03-19] MEDS: HEPARIN 500 UNIT/5 ML SYRINGE FOR CENTRAL LINE IVP PRN ×2 (08:26→13:26)
[2019-03-19] MEDS: ASCORBIC ACID Chewable 500 MG TABLET PO SCH (08:26)
[2019-03-19] MEDS: POTASSIUM CHLORIDE 20 MEQ TAB PO SCH ×2 (08:26→20:43)
[2019-03-19] MEDS: HEPARIN 5000 UNIT/1 ML SUBCUT SCH ×2 (08:28→15:55)
[2019-03-19] MEDS: GABAPENTIN 300 MG CAPSULE PO SCH ×3 (08:28→20:43)
[2019-03-19] MEDS: METOPROLOL SUCCINATE 25 MG SR 24H TABLET PO SCH (08:28)
[2019-03-19] MEDS: FUROSEMIDE 10 MG/1 ML - 4 ML IVP SCH ×2 (08:30→15:03)
[2019-03-19] MEDS: FUROSEMIDE 10 MG/1 ML - 2 ML VIAL IVP SCH (08:30)
[2019-03-19] MEDS: LORazepam 1 MG TABLET PO PRN (20:42)
[2019-03-20] MEDS: HEPARIN 5000 UNIT/1 ML SUBCUT SCH ×3 (02:57→14:55)
[2019-03-20] MEDS: Cefepime Inj 2 GM in Sodium Chloride 0.9% 100 ML IV SCH ×3 (05:15→20:32)
[2019-03-20] MEDS: IPRATROPIUM/ALBUTEROL SULFATE 3 ML NEB NEB SCH ×3 (06:45→18:53)
[2019-03-20] MEDS ORDERED: FUROSEMIDE 40 MG TABLET PO SCH (07:00)
[2019-03-20] MEDS: FUROSEMIDE 40 MG TABLET PO SCH ×2 (07:20→12:20)
[2019-03-20] MEDS: MAGNESIUM OXIDE 400 MG TABLET PO SCH (07:21)
[2019-03-20 08:44] LABS: BUN/CREATININE RATIO 13.84 (6-20)
[2019-03-20] MEDS: METOPROLOL SUCCINATE 25 MG SR 24H TABLET PO SCH (09:01)
[2019-03-20] MEDS: Multivitamin Tab 1 TAB PO SCH (09:01)
[2019-03-20] MEDS: POTASSIUM CHLORIDE 20 MEQ TAB PO SCH ×2 (09:01→20:33)
[2019-03-20] MEDS: GABAPENTIN 300 MG CAPSULE PO SCH ×3 (09:01→20:33)
[2019-03-20] MEDS: ASCORBIC ACID Chewable 500 MG TABLET PO SCH (09:02)
[2019-03-20] MEDS: HEPARIN 500 UNIT/5 ML SYRINGE FOR CENTRAL LINE IVP PRN (11:39)
[2019-03-20] MEDS: Loperamide Tab 2 MG TABLET PO PRN ×2 (14:16→20:35)
[2019-03-20] MEDS: LORazepam 1 MG TABLET PO PRN (20:47)
[2019-03-21] MEDS: HEPARIN 5000 UNIT/1 ML SUBCUT SCH ×3 (00:15→15:19)
[2019-03-21] MEDS: IPRATROPIUM/ALBUTEROL SULFATE 3 ML NEB NEB SCH ×2 (07:04→18:53)
[2019-03-21] MEDS: FUROSEMIDE 40 MG TABLET PO SCH ×2 (07:06→08:59)
[2019-03-21] MEDS: MAGNESIUM OXIDE 400 MG TABLET PO SCH (07:06)
[2019-03-21] MEDS: ASCORBIC ACID Chewable 500 MG TABLET PO SCH (08:59)
[2019-03-21] MEDS: GABAPENTIN 300 MG CAPSULE PO SCH ×3 (08:59→20:31)
[2019-03-21] MEDS: METOPROLOL SUCCINATE 25 MG SR 24H TABLET PO SCH (08:59)
[2019-03-21] MEDS: POTASSIUM CHLORIDE 20 MEQ TAB PO SCH (09:00)
[2019-03-21] MEDS: Multivitamin Tab 1 TAB PO SCH (09:00)
[2019-03-21 12:59] LABS: BASOPHILS # (AUTO) 0.05 10*3/UL; BASOPHILS % (AUTO) 1.3 % (0-1); EOSINOPHILS # (AUTO) 0.19 10*3/UL; EOSINOPHILS % (AUTO) 4.8 % (0-8); Hematocrit [HCT] 32.3 % (42.0-52.0); Hemoglobin [HGB] 10.6 g/dL (14.0-18.0); LYMPHOCYTES # (AUTO) 0.69 10*3/uL; MEAN CORPUSCULAR HGB CONC 32.8 g/dL (33-37); MEAN CORPUSCULAR VOLUME 113.7 FL (80-90); MONOCYTES # (AUTO) 0.85 10*3/UL (0.3-0.8); MONOCYTES % (AUTO) 21.4 % (5-15); NEUTROPHILS # (AUTO) 2.19 10*3/UL; NEUTROPHILS % (AUTO) 54.9 % (50-80); RED BLOOD COUNT 2.84 10^6/uL (4.70-6.10)
[2019-03-21 13:08] LABS: PLATELET MORPHOLOGY COMMENT NORMAL MORPHOLOGY (NORM); WBC MORPHOLOGY COMMENT NORMAL MORPHOLOGY (NORM)
[2019-03-21 13:09] LABS: RBC MORPHOLOGY COMMENT SEE COMMENTS (NORM)
[2019-03-21 13:19] LABS: BUN/CREATININE RATIO 12.35 (6-20)
[2019-03-21] MEDS: Lactated Ringers 1,000 ML PRIMARY IV SCH (15:19)
[2019-03-22] MEDS: HEPARIN 5000 UNIT/1 ML SUBCUT SCH ×2 (00:30→09:10)
[2019-03-22] MEDS: Lactated Ringers 1,000 ML PRIMARY IV SCH (00:32)
[2019-03-22 05:25] VITALS: TEMP 97.6
[2019-03-22 05:37] LABS: BUN/CREATININE RATIO 16.25 (6-20)
[2019-03-22] MEDS: IPRATROPIUM/ALBUTEROL SULFATE 3 ML NEB NEB SCH (06:38)
[2019-03-22] MEDS: MAGNESIUM OXIDE 400 MG TABLET PO SCH (06:46)
[2019-03-22 07:02] VITALS: BP 96/66; RESP 20; O2SAT 95
[2019-03-22] MEDS: Multivitamin Tab 1 TAB PO SCH (09:10)
[2019-03-22] MEDS: GABAPENTIN 300 MG CAPSULE PO SCH (09:10)
[2019-03-22] MEDS: ASCORBIC ACID Chewable 500 MG TABLET PO SCH (09:10)
[2019-03-22] MEDS: METOPROLOL SUCCINATE 25 MG SR 24H TABLET PO SCH (09:10)
== END 2019-03-22 11:19 | disposition home or self-care (01) | DRG 308 ==
LOC: ER 09:29 → MED/SURG 16:15
PROVIDERS: ADMIT Family Medicine; ATTEND Family Medicine